=== PATIENT | male | born 1975 | race Two or more races ===

== ENCOUNTER 2018-09-06 22:02 | Inpatient (IN) | payer BC ==
[~2018-09-06] VITALS: Ht 182.9 cm; Wt 85.3 kg
[2018-09-06] MEDS ORDERED: OCTREOTIDE ACETATE 50 MCG/ML 1ML IV ONE (22:15)
[2018-09-06] MEDS ORDERED: PANTOPRAZOLE 80 MG in SODIUM CHLORIDE 0.9% 80 ML IV ONE (22:15)
[2018-09-06 22:57] LABS: HEMATOCRIT. 29.6 % (42.0-52.0); HEMOGLOBIN. 9.7 g/dL (14.0-18.0); MEAN CORPUSCULAR HEMOGLOBIN 29.9 pg (28.0-32.0); MEAN PLATELET VOLUME 8.5 fl (7.4-10.4); PLATELET 102 x1000/uL (130-400); RED BLOOD CELL COUNT 3.25 mill/uL (4.7-6.1); RED CELL DISTRIBUTION WIDTH 20.6 % (11.6-14.6)
[2018-09-06 23:12] LABS: PLATELET ESTIMATE DECREASED
[2018-09-06] MEDS ORDERED: CEFTRIAXONE 1 G PREMIX 50 ML IV NR (23:15)
[2018-09-06 23:24] LABS: CHLORIDE 90 mEq/L (98-107)
[2018-09-06] MEDS ORDERED: DEXTROSE 50% WATER 50ML SYRINGE IV ONE ×2 (23:52→23:58)
[2018-09-06] MEDS ORDERED: CALCIUM CHLORIDE 1GM/10ML SYR IV ONE (23:58)
[2018-09-06] MEDS ORDERED: SODIUM BICARBONATE 8.4% 1 MEQ/ML 50ML SYR IV ONE (23:58)
[2018-09-06] MEDS ORDERED: INSULIN REGULAR (HUMULIN R) 300UNITS/3ML ONE (23:59)
[2018-09-07] VITALS (25 sets, daily range): BP systolic 69–110; BP diastolic 33–81
[2018-09-07] MEDS ORDERED: INSULIN REGULAR (HUMULIN R) UD 100 UNITS/ML SYR IV ONE
[2018-09-07] MEDS ORDERED: DEXTROSE 50% WATER 50ML SYRINGE IV ONE
[2018-09-07] MEDS ORDERED: NOREPINEPHRINE 4 MG in DEXT 5% WATER 246 ML IV ONE ×4
[2018-09-07] MEDS ORDERED: SODIUM BICARBONATE 8.4% 1 MEQ/ML 50ML SYR IV ONE ×2 (00:08)
[2018-09-07] MEDS ORDERED: CALCIUM CHLORIDE 1GM/10ML SYR IV ONE (00:08)
[2018-09-07] MEDS ORDERED: CALCIUM GLUCONATE 100MG/ML 10ML VIAL IV ONE ×2 (00:15)
[2018-09-07] MEDS ORDERED: PIPERACILLIN/TAZ 3.375G PREMIX 50 ML IV NR (00:15)
[2018-09-07] MEDS ORDERED: PIPERACILLIN/TAZOBACTAM 3.375GM/50ML PREMIX IV ONE (00:15)
[2018-09-07] MEDS ORDERED: VANCOMYCIN 1 G PREMIX 200 ML IV SCH (00:15)
[2018-09-07 00:27] LABS: BG BASE EXCESS -11.6 mmol/L (-2.0-2.0); BG CARBOXYHEMOGLOBIN 0.4 % (0.5-1.5); BG DEOXYHEMOGLOBIN 0.6 % (0.0-5.0); BG FRACTION INSPIRED OXYGEN 100; BG HCO3 ACT 13.3 mmol/L (22.0-26.0); BG METHEMOGLOBIN 0.3 % (0.0-1.5); BG OXYGEN SATURATION 99.4 % (92.0-98.5); BG OXYHEMOGLOBIN 98.7 % (94.0-97.0); BG PCO2 27.5 mmHg (35.0-45.0); BG PH 7.302 (7.350-7.450); BG PO2 222.8 mmHg (75.0-100.0); BG SAMPLE SITE RIGHT RADIAL; BG TOTAL HEMOGLOBIN 11.9 g/dL (12.0-18.0); BG VENT MODE MASK - NRB
[2018-09-07 00:50] LABS: PROTHROMBIN TIME > 100.0 sec (9.1-11.1)
[2018-09-07 00:51] LABS: INR > 10.0
[2018-09-07] MEDS ORDERED: OCTREOTIDE 1,000 MCG in SODIUM CHLORIDE 0.9% 98 ML IV PRN (01:00)
[2018-09-07 02:59] LABS: HEMATOCRIT. 32.4 % (42.0-52.0); HEMOGLOBIN. 10.9 g/dL (14.0-18.0); MEAN CORPUSCULAR HEMOGLOBIN 29.8 pg (28.0-32.0); MEAN CORPUSCULAR VOLUME 88.2 fL (80.0-94.0); MEAN PLATELET VOLUME 8.3 fl (7.4-10.4); PLATELET 83 x1000/uL (130-400); RED BLOOD CELL COUNT 3.67 mill/uL (4.7-6.1); RED CELL DISTRIBUTION WIDTH 18.5 % (11.6-14.6)
[2018-09-07] MEDS ORDERED: NOREPINEPHRINE 4 MG in DEXT 5% WATER 246 ML IV NR (03:00)
[2018-09-07 03:10] LABS: PROTHROMBIN TIME 47.8 sec (9.1-11.1)
[2018-09-07 03:19] LABS: CHLORIDE 90 mEq/L (98-107)
[2018-09-07 03:30] LABS: INR 4.9
[2018-09-07] MEDS ORDERED: INSULIN REGULAR (HUMULIN R) 300UNITS/3ML IV NR ×2 (04:00→04:15)
[2018-09-07] MEDS ORDERED: DEXTROSE 50% WATER 50ML SYRINGE IV NR ×2 (04:00→04:15)
[2018-09-07] MEDS ORDERED: SODIUM BICARBONATE 8.4% 1 MEQ/ML 50ML SYR IV NR (04:15)
[2018-09-07] MEDS ORDERED: ALBUTEROL (0.083%) 2.5MG/3ML NEB HHN NR (04:15)
[2018-09-07] MEDS ORDERED: CALCIUM CHLORIDE 1GM/10ML SYR IV NR (04:15)
[2018-09-07] MEDS ORDERED: SODIUM POLYSTYRENE SULFONATE 15 G/60 ML BOT PO NR (04:15)
[2018-09-07 05:25] LABS: CHLORIDE 89 mEq/L (98-107)
[2018-09-07] MEDS ORDERED: DEXT 5%/0.45% NACL 1000ML 1,000 ML IV SCH (06:45)
[2018-09-07 07:05] LABS: NUCLEATED RED BLOOD CELLS 1 /100 WBC
[2018-09-07 07:08] LABS: PLATELET ESTIMATE DECREASED
[2018-09-07 07:50] LABS: BG CARBOXYHEMOGLOBIN 0.8 % (0.5-1.5); BG DEOXYHEMOGLOBIN 20.3 % (0.0-5.0); BG FRACTION INSPIRED OXYGEN 100; BG HCO3 ACT 14.4 mmol/L (22.0-26.0); BG METHEMOGLOBIN 0.4 % (0.0-1.5); BG OXYGEN SATURATION 79.5 % (92.0-98.5); BG OXYHEMOGLOBIN 78.5 % (94.0-97.0); BG PCO2 31.1 mmHg (35.0-45.0); BG PH 7.283 (7.350-7.450); BG SAMPLE SITE LEFT BRACHIAL; BG TOTAL HEMOGLOBIN 13.2 g/dL (12.0-18.0); BG VENT MODE MASK - NRB
[2018-09-07 07:50] LABS: BASOPHILS % 0.2 % (0.0-2.0); EOSINOPHILS % 0.1 % (0.0-5.0); HEMATOCRIT. 36.9 % (42.0-52.0); LYMPHOCYTES % 16.8 % (20.0-50.0); MEAN CORPUSCULAR HEMOGLOBIN 30.1 pg (28.0-32.0); MEAN CORPUSCULAR VOLUME 87.9 fL (80.0-94.0); MEAN PLATELET VOLUME 8.4 fl (7.4-10.4); NEUTROPHILS % 76.9 % (40.0-76.0); PLATELET 94 x1000/uL (130-400); RED BLOOD CELL COUNT 4.21 mill/uL (4.7-6.1); RED CELL DISTRIBUTION WIDTH 18.3 % (11.6-14.6)
[2018-09-07 07:51] LABS: HEMOGLOBIN. 12.6 g/dL (14.0-18.0)
[2018-09-07] MEDS ORDERED: NOREPINEPHRINE 4 MG in DEXT 5% WATER 246 ML IV PRN (08:30)
[2018-09-07 08:32] LABS: BG BASE EXCESS -13.4 mmol/L (-2.0-2.0); BG CARBOXYHEMOGLOBIN 0.7 % (0.5-1.5); BG DEOXYHEMOGLOBIN 0.5 % (0.0-5.0); BG FRACTION INSPIRED OXYGEN 100; BG HCO3 ACT 10.7 mmol/L (22.0-26.0); BG METHEMOGLOBIN 0.5 % (0.0-1.5); BG OXYGEN SATURATION 99.5 % (92.0-98.5); BG OXYHEMOGLOBIN 98.3 % (94.0-97.0); BG PCO2 21.6 mmHg (35.0-45.0); BG PH 7.313 (7.350-7.450); BG PO2 246.7 mmHg (75.0-100.0); BG SAMPLE SITE RIGHT RADIAL; BG TOTAL HEMOGLOBIN 13.2 g/dL (12.0-18.0); BG VENT MODE MASK - NRB
[2018-09-07 08:45] LABS: PROTHROMBIN TIME 54.9 sec (9.1-11.1)
[2018-09-07] MEDS ORDERED: PIPERACILLIN/TAZ 3.375G PREMIX 50 ML IV SCH (08:45)
[2018-09-07] MEDS ORDERED: SODIUM BICARBONATE 8.4% 1 MEQ/ML 50ML SYR IV SCH (08:45)
[2018-09-07 08:46] LABS: AMMONIA 37 uMol/L (<32)
[2018-09-07] MEDS ORDERED: PANTOPRAZOLE SODIUM 40 MG/VIAL IV SCH (09:00)
[2018-09-07] MEDS: MORPHINE SULFATE 4 MG/ML CPJ (NOT FOR IM USE) IV PRN ×2 (09:20→14:56)
[2018-09-07] MEDS ORDERED: PIPERACILLIN/TAZ 2.25G PREMIX 50 ML IV SCH (10:00)
[2018-09-07] MEDS ORDERED: VANCOMYCIN 1500MG in DEXTROSE 5% WATER 250ML IV SCH (10:00)
[2018-09-07 11:06] LABS: INR 5.6
[2018-09-07] MEDS: LORAZEPAM 2MG/ML CPJ IV PRN ×2 (11:35→16:48)
[2018-09-07] MEDS ORDERED: BLOOD SUGAR DIAGNOSTIC STRIP TEST SCH (12:00)
[2018-09-08] VITALS (7 sets, daily range): BP systolic 70–141; BP diastolic 26–84
[2018-09-08] MEDS ORDERED: VANCOMYCIN 1 G PREMIX 200 ML IV SCH (10:00)
[2018-09-08] MEDS: MORPHINE SULFATE 4 MG/ML CPJ (NOT FOR IM USE) IV PRN ×3 (11:02→16:52)
[2018-09-08] MEDS: LORAZEPAM 2MG/ML CPJ IV PRN ×2 (11:49→19:00)
== END 2018-09-09 00:45 | disposition expired | DRG 871 ==
LOC: ER 22:02 → CVICU 22:44 → EDBEDREQTM 22:46 → EDBEDREQ 22:46 → ENRESERV 23:54 → 6EST 09-07 11:55
PROVIDERS: ADMIT Internal Medicine; ATTEND Internal Medicine
PROC: 06HY33Z Insertion of Infusion Device into Lower Vein, Percutaneous Approach (ICD-10-PCS; principal; 2018-09-06)
PROC: 30243L1 Transfusion of Nonautologous Fresh Plasma into Central Vein, Percutaneous Approach (ICD-10-PCS; 2018-09-06)
PROC: 30243N1 Transfusion of Nonautologous Red Blood Cells into Central Vein, Percutaneous Approach (ICD-10-PCS; 2018-09-06)
PROC: 30243K1 Transfusion of Nonautologous Frozen Plasma into Central Vein, Percutaneous Approach (ICD-10-PCS; 2018-09-06)
DX: A41.9 Sepsis, unspecified organism (principal); E43 Unspecified severe protein-calorie malnutrition; G93.41 Metabolic encephalopathy; J96.00 Acute respiratory failure, unspecified whether with hypoxia or hypercapnia; K85.90 Acute pancreatitis without necrosis or infection, unspecified; N17.9 Acute kidney failure, unspecified; K92.2 Gastrointestinal hemorrhage, unspecified; E87.1 Hypo-osmolality and hyponatremia; C34.90 Malignant neoplasm of unspecified part of unspecified bronchus or lung; D68.9 Coagulation defect, unspecified; E87.2 Acidosis; D64.9 Anemia, unspecified; E16.2 Hypoglycemia, unspecified; Z66 Do not resuscitate; I95.9 Hypotension, unspecified; K72.90 Hepatic failure, unspecified without coma; E87.8 Other disorders of electrolyte and fluid balance, not elsewhere classified; R74.8 Abnormal levels of other serum enzymes; E87.5 Hyperkalemia; Z60.2 Problems related to living alone; Z85.118 Personal history of other malignant neoplasm of bronchus and lung; Z68.25 Body mass index [BMI] 25.0-25.9, adult; Z92.21 Personal history of antineoplastic chemotherapy; Z92.3 Personal history of irradiation
CPT/HCPCS: 36415; 36600; 71045; 80048; 82140; 82375; 82805; 82962; 83605; 84484; 85384; 86850; 86900; 86920; 93005; 94644; 96365; 96375; 99291; 99292; C9113; J0610; J1815; J2060; J2270; J2354; J2543; J3370; J3490; J7040; J7050; J7060; J7611; P9016; P9017; A4315